=== PATIENT | female | born 1965 | race Caucasian/White ===

== ENCOUNTER 2024-02-25 12:02 | Emergency (ER) | payer OTHER, SELFPAY ==
[2024-02-25 12:04] VITALS: BP 161/79
--- NOTE | 2024-02-25 13:31 | ED.GENMED ---
History of Present Illness
General
Chief Complaint: Ear Problem
Time Seen by Provider: 02/25/24 13:06
Travel History
Have you had any contact with someone who has COVID-19?: No
Do you have any symptoms of coronavirus? Fever > 100 degrees, chills, cough, shortness of breath, sore throat, loss of taste or smell, muscle aches, or headache?: No
History of Present Illness
History of Present Illness:
58-year-old female with history of hypothyroidism presents to the emergency department for evaluation of right ear pain over the past day. Pain is rated as severe, no obvious modifying factors. Denies any trauma to the ear. Denies any associated
viral URI symptoms, fevers, hearing loss, tinnitus, vertigo, chest pain, or shortness of breath. No neck pain or back pain. Denies any vision changes or jaw claudication
Review of Systems
Review of Systems
Allergies reviewed?: Yes
All Other Systems: ROS reviewed and negative except as documented in HPI and ROS
Phy Exam
Physical Exam
Physical Exam:
GEN: Well appearing, NAD, WDWN
HEENT: Oral mucosa moist, no scleral icterus. TMs clear bilaterally with no erythema or bulging, no middle ear effusions. Mild tenderness to the right mastoid area, no palpable adenopathy. No erythema or protrusion of the auricle, no crepitus or
vesicular rashes. Pupils equal round reactive to light bilaterally without photosensitivity
Cardiac: Regular rate and rhythm, no murmurs
Lung: No respiratory distress, no tachypnea
MSK: No gross deformity or injuries
Skin: Good color, no pallor or jaundice, no rashes
Neuro: AO x3, moves all extremities freely
Psych: Calm, cooperative
Course
Orders/Labs/Results
Orders:
Orders
02/25/24 13:30
IV Insert/Care/Rem.- Treatment PRN
Ketorolac [Toradol] 15 mg IV NOW STA
02/25/24 13:54
Complete Blood Count/With Diff Urgent
ESR [Erythrocyte Sed Rate] Urgent
02/25/24 13:55
CRP [C-Reactive Protein] Urgent
Comprehensive Metabolic Panel Urgent
Abnormal Lab Results
02/25/24 02/25/24
13:54 13:55
RBC 3.17 L 10^6/uL
(4.20-5.40)
Hgb 9.6 L g/dL
(12.0-16.0)
Hct 28.6 L %
(37.0-47.0)
Plt Count 449 H 10^3/uL
(130-400)
Absolute Monos (auto) 0.8 H 10^3/uL
(0.1-0.6)
Monocytes % 10.9 H %
(1.7-9.3)
ESR 24 H mm/hour
(0-20)
Sodium 134 L mmol/L
(135-145)
AST 42 H U/L
(14-36)
ALT 45 H U/L
(0-35)
02/25/24 13:54
02/25/24 13:55
Vital Signs
Initial and Last Documented VS:
Initial Vital Signs
Temp Pulse Resp BP Pulse Ox
98.5 F 86 18 161/79 100
02/25/24 12:04 02/25/24 12:04 02/25/24 12:04 02/25/24 12:04 02/25/24 12:04
Last Documented Vital Signs
Temp Pulse Resp BP Pulse Ox
98.5 F 86 18 161/79 100
02/25/24 12:04 02/25/24 12:04 02/25/24 12:04 02/25/24 12:04 02/25/24 12:04
MDM/Problems Addressed
MDM/Problems Addressed:
Unclear etiology. She has no associated acute otitis media or otitis externa. Exam is not convincing for mastoiditis as there is no erythema or protrusion of the auricle. She has no rashes to suggest zoster. Labs are reassuring, negative
inflammatory markers rules out giant cell arteritis. Recommend NSAIDs and ice, primary care follow-up if pain persists, ED return parameters discussed
*Critical Care Note
Total Time (30-74mins, 75-104mins- exclusive of procedures): Not Applicable
ED Attending Note
-
Portions of this chart may have been created with voice recognition software.� Occasional wrong word or��sound alike� substitutions may have occurred due to the inherent limitations of voice recognition software.
Discharge Plan
Departure
Patient Disposition: Home (Routine Discharge)
Date of Disposition: 02/25/24
Time of Disposition: 14:48
Patient with high blood pressure during this ER visit?: No
Discharge Problem:
Ear pain, right
Referrals:
Stephanie Aguirre, DO [Family Provider] -
Activity Restrictions/Additional Instructions:
At this time there is no clear cause of your ear pain
You lab work is reassuring and there is no evidence of inflammatory/vascular condition
Your exam is reassuring against mastoiditis or inner ear infection
You have no rashes to suggest shingles, however if a blistery rash develops, shingles is most likely
Continue with anti inflammatories as we discussed
If you develop a fever, redness/swelling behind the right ear, hearing loss, or severe dizziness, return for re-evaluation
Interventions
Interventions:
*Risk Screen - Suicide Last Done: 02/25/24 12:04
*Neglect/Abuse Screening Last Done: 02/25/24 12:04
*ED COVID-19 Vaccine History Last Done: 02/25/24 12:04
*Nursing Disposition Last Done: 02/25/24 15:06
Discharge Date and Time
Discharge Date/Time: 02/25/24 15:06
Print Language: MARSHALLESE
[2024-02-25] MEDS: TORADOL 15 MG IV (13:50)
[2024-02-25 14:17] LABS: % Basophils 1.6 % (0-2); % Eosinophils 3.6 % (0-6); % Immature Granulocytes 0.3 % (0-0.5); % Monocytes 10.9 % (1.7-9.3); % Neutrophils 49.6 % (42.2-75.2); Absolute Basophils 0.1 10^3/uL (0-0.2); Absolute Eosinophils 0.3 10^3/uL (0-0.7); Absolute Lymphocytes 2.4 10^3/uL (1.2-3.4); Absolute Monocytes 0.8 10^3/uL (0.1-0.6); Absolute Neutrophils 3.5 10^3/uL (1.4-6.5); Hematocrit 28.6 % (37.0-47.0); Hemoglobin 9.6 g/dL (12.0-16.0); Mean Corp Hgb Conc. 33.6 g/dL (33.0-37.0); Mean Corpuscular Hgb 30.3 pg (27.0-31.0); Mean Corpuscular Volume 90.2 fL (81.0-99.0); Mean Platelet Volume 9.7 fL (7.4-10.4); Nucleated Red Blood Cells % 0 %; Platelet Count 449 10^3/uL (130-400); Red Blood Cell Count 3.17 10^6/uL (4.20-5.40); Red Cell Dist. Width 13.1 % (11.5-14.5)
[2024-02-25 14:35] LABS: ALT (SGPT) 45 U/L (0-35); AST (SGOT) 42 U/L (14-36); Albumin 4.4 g/dl (3.5-5.0); Alkaline Phosphatase 52 U/L (38-126); Blood Urea Nitrogen 12 mg/dl (7-17); Calcium 9.9 mg/dl (8.4-10.2); Carbon Dioxide 22 mmol/L (22-30); Chloride 106 mmol/L (98-107); Glucose 95 mg/dl (70-99); Sodium 134 mmol/L (135-145); Total Bilirubin 0.3 mg/dl (0.2-1.3); Total Protein 6.7 g/dl (6.3-8.2); eGFR > 60.00
[2024-02-25 14:39] LABS: C-Reactive Protein < 5.00 mg/L (0.0-10.00)
[2024-02-25 14:44] LABS: Erythrocyte Sed Rate 24 mm/hour (0-20)
== END 2024-02-25 15:06 | disposition home or self-care (01) ==
LOC: EMR 12:02
PROVIDERS: Physician Assistant; EMERGENCY PHYSICIAN Student in an Organized Health Care Education/Training Program; FAMILY PHYSICIAN Family Medicine
DX: H92.01 Otalgia, right ear (principal); E03.9 Hypothyroidism, unspecified
CPT/HCPCS: 99284; 96374; 80053; 85025; 85652; 86140

== ENCOUNTER → 2024-06-25 12:06 | Outpatient (REF) | payer SELFPAY | LOC: HWRAD 12:06 | PROVIDERS: ATTENDING PHYSICIAN Nurse Practitioner | DX: R05.1 Acute cough (principal); R19.7 Diarrhea, unspecified; R09.89 Other specified symptoms and signs involving the circulatory and respiratory systems; R20.9 Unspecified disturbances of skin sensation | CPT/HCPCS: 71046 ==

== ENCOUNTER 2024-06-28 12:58 | Emergency (ER) | payer SELFPAY ==
[2024-06-28 12:59] VITALS: BP 177/100
[2024-06-28 13:13] LABS: % Basophils 1.1 % (0-2); % Eosinophils 1.1 % (0-6); % Immature Granulocytes 0.2 % (0-0.5); % Lymphocytes 25.2 % (20.5-51.1); % Monocytes 8.5 % (1.7-9.3); % Neutrophils 63.9 % (42.2-75.2); Absolute Basophils 0.1 10^3/uL (0-0.2); Absolute Eosinophils 0.1 10^3/uL (0-0.7); Absolute Lymphocytes 1.4 10^3/uL (1.2-3.4); Absolute Monocytes 0.5 10^3/uL (0.1-0.6); Absolute Neutrophils 3.5 10^3/uL (1.4-6.5); Hematocrit 33.3 % (37.0-47.0); Mean Corpuscular Hgb 27.4 pg (27.0-31.0); Mean Platelet Volume 9.4 fL (7.4-10.4); Nucleated Red Blood Cells % 0 %; Platelet Count 422 10^3/uL (130-400); Red Blood Cell Count 4.01 10^6/uL (4.20-5.40); Red Cell Dist. Width 17.5 % (11.5-14.5); White Blood Cell Count 5.4 10^3/uL (4.8-10.8)
[2024-06-28 13:27] LABS: ALT (SGPT) 51 U/L (0-35); AST (SGOT) 103 U/L (14-36); Albumin 4.7 g/dl (3.5-5.0); Alkaline Phosphatase 59 U/L (38-126); Blood Urea Nitrogen 4 mg/dl (7-17); Calcium 10.3 mg/dl (8.4-10.2); Carbon Dioxide 17 mmol/L (22-30); Chloride 101 mmol/L (98-107); Glucose 78 mg/dl (70-99); Potassium 4.3 mmol/L (3.5-5.1); Sodium 132 mmol/L (135-145); Total Protein 6.9 g/dl (6.3-8.2); eGFR > 60.00
[2024-06-28 14:06] VITALS: BP 158/92
--- NOTE | 2024-06-28 15:29 | ED.GENMED ---
History of Present Illness
<Renuka Alexandre PA-C - Last Filed: 06/29/24 00:04>
General
Chief Complaint: Abdominal Symptoms
Source: patient
Exam Limitations: none
Time Seen by Provider: 06/28/24 15:03
Nursing documentation reviewed up to this point in time: agreed with
History of Present Illness
History of Present Illness:
Patient is a 59-year-old female with history hypothyroid presenting to the emergency department from primary care office for evaluation of ongoing diarrhea for the past 7 days. Patient states that first episode of diarrhea occurred last Friday and
has been persistent since. Patient reports about 10 episodes of diarrhea per day. No blood in her stool, dark stool, or melena. Patient also endorses some mild pain in her left lower abdomen. No nausea or vomiting. She does report a fever of
100.1 a few days ago at home. Patient denies any urinary symptoms, chest pain, shortness of breath. Patient has been following the brat diet without any improvement.
Patient denies any recent antibiotic use or hospitalizations. Patient denies any recent travel. No recent seafood, [employer] party food. No known sick contacts.
Patient was seen by her primary care doctor today who was very concerned given she has lost 10 pounds. She referred her to the emergency department for thorough evaluation.
Past History
<Renuka Alexandre PA-C - Last Filed: 06/29/24 00:04>
Past History
ED Past Medical History: Hypothyroidism
ED Past Surgical History:
Patient has exhibited threatening behavior?: No
Social History
Tobacco: Non-smoker
Alcohol: Occasional
Living: alone
Review of Systems
<Renuka Alexandre PA-C - Last Filed: 06/29/24 00:04>
Review of Systems
Allergies reviewed?: Yes
All Other Systems: ROS reviewed and negative except as documented in HPI and ROS
Phy Exam
<Renuka Alexandre PA-C - Last Filed: 06/29/24 00:04>
Physical Exam
Physical Exam:
Vitals: Hypertensive, otherwise vital signs stable. Afebrile
General: Patient is well appearing, no acute distress
Skin: Warm and dry, no rashes or lesions
Head: Normocephalic, atraumatic
Eyes: Sclera nonicteric. EOMs intact. No nystagmus.
Throat: Dry mucous membranes. Protecting airway
Neck: Normal ROM, no cervical spine tenderness, no meningismus
Cardiac: Regular rate and rhythm, no murmurs.
Pulm: Normal respiratory effort, no wheezes, rales, rhonchi heard on exam.
Abdomen: Abdomen soft. Mild tenderness in left lower quadrant without any rebound tenderness or guarding. No CVA tenderness
Extremities: No evidence of cyanosis or edema
Neuro: AAOx3. CN II-XII intact. No focal neurologic deficits.
Psychiatric: Normal affect.
Course
<Renuka Alexandre PA-C - Last Filed: 06/29/24 00:04>
Orders/Labs/Results
Orders:
Orders
06/28/24 13:05
Complete Blood Count/With Diff Urgent
Comprehensive Metabolic Panel Urgent
Free T4 Urgent
Lipase Urgent
TSH Reflex To Free T4 Urgent
Comment: ADDON
06/28/24 15:20
Add On- LAB Urgent
Tests Added?: TSH w/ reflex to T4
Electrocardiogram (*1) Urgent
Reason for Study: Fatigue / Weakness
EKG- Treatment ONCE
0.9% Sodium Chloride 1000 ml [Nss] 1,000 ml IV BOLUS
06/28/24 15:23
CT Abd/Pel (IV only)-DH only Urgent
Comment:
Reason For Exam: Diarrhea, weight loss, LLQ pain
06/28/24 15:43
Urinalysis Reflex To Culture Urgent
Date Specimen was Collected: 06/28/24
Time Specimen was Collected: 15:33
06/28/24 16:10
0.9% Sodium Chloride 1000 ml [Nss] 2,000 ml IV BOLUS
Abnormal Lab Results
06/28/24 06/28/24
13:05 15:43
RBC 4.01 L 10^6/uL
(4.20-5.40)
Hgb 11.0 L g/dL
(12.0-16.0)
Hct 33.3 L %
(37.0-47.0)
RDW 17.5 H %
(11.5-14.5)
Plt Count 422 H 10^3/uL
(130-400)
Sodium 132 L mmol/L
(135-145)
Carbon Dioxide 17 L mmol/L
(22-30)
BUN 4 L mg/dl
(7-17)
Calcium 10.3 H mg/dl
(8.4-10.2)
AST 103 H U/L
(14-36)
ALT 51 H U/L
(0-35)
TSH (Reflex) < 0.02 L uIU/ml
(0.47-4.68)
Urine Ketones 2+ A
(Negative)
06/28/24 13:05
06/28/24 13:05
Vital Signs
Initial and Last Documented VS:
Initial Vital Signs
Temp Pulse Resp BP Pulse Ox
98.2 F 110 16 177/100 97
06/28/24 12:59 06/28/24 12:59 06/28/24 12:59 06/28/24 12:59 06/28/24 12:59
Last Documented Vital Signs
Temp Pulse Resp BP Pulse Ox
98.2 F 78 16 155/78 99
06/28/24 12:59 06/28/24 17:52 06/28/24 17:52 06/28/24 17:52 06/28/24 17:52
<Nish Lauren, DO - Last Filed: 06/28/24 17:52>
Orders/Labs/Results
Orders:
Orders
06/28/24 13:05
Complete Blood Count/With Diff Urgent
Comprehensive Metabolic Panel Urgent
Free T4 Urgent
Lipase Urgent
TSH Reflex To Free T4 Urgent
Comment: ADDON
06/28/24 15:20
Add On- LAB Urgent
Tests Added?: TSH w/ reflex to T4
Electrocardiogram (*1) Urgent
Reason for Study: Fatigue / Weakness
EKG- Treatment ONCE
0.9% Sodium Chloride 1000 ml [Nss] 1,000 ml IV BOLUS
06/28/24 15:23
CT Abd/Pel (IV only)-DH only Urgent
Comment:
Reason For Exam: Diarrhea, weight loss, LLQ pain
06/28/24 15:43
Urinalysis Reflex To Culture Urgent
Date Specimen was Collected: 06/28/24
Time Specimen was Collected: 15:33
06/28/24 16:10
0.9% Sodium Chloride 1000 ml [Nss] 2,000 ml IV BOLUS
Abnormal Lab Results
06/28/24 06/28/24
13:05 15:43
RBC 4.01 L 10^6/uL
(4.20-5.40)
Hgb 11.0 L g/dL
(12.0-16.0)
Hct 33.3 L %
(37.0-47.0)
RDW 17.5 H %
(11.5-14.5)
Plt Count 422 H 10^3/uL
(130-400)
Sodium 132 L mmol/L
(135-145)
Carbon Dioxide 17 L mmol/L
(22-30)
BUN 4 L mg/dl
(7-17)
Calcium 10.3 H mg/dl
(8.4-10.2)
AST 103 H U/L
(14-36)
ALT 51 H U/L
(0-35)
TSH (Reflex) < 0.02 L uIU/ml
(0.47-4.68)
Urine Ketones 2+ A
(Negative)
06/28/24 13:05
06/28/24 13:05
Vital Signs
Initial and Last Documented VS:
Initial Vital Signs
Temp Pulse Resp BP Pulse Ox
98.2 F 110 16 177/100 97
06/28/24 12:59 06/28/24 12:59 06/28/24 12:59 06/28/24 12:59 06/28/24 12:59
Last Documented Vital Signs
Temp Pulse Resp BP Pulse Ox
98.2 F 78 16 155/78 99
06/28/24 12:59 06/28/24 17:52 06/28/24 17:52 06/28/24 17:52 06/28/24 17:52
<Renuka Alexandre PA-C - Last Filed: 06/29/24 00:04>
MDM/Problems Addressed
Differential Diagnosis Includes:
Not limited to: Colitis, enteritis, diverticulitis, dehydration, IBS, IBD
MDM/Problems Addressed:
59-year-old female presenting with 1 week of persistent diarrhea. No associated fever, chills, abdominal pain, nausea, or vomiting. No diarrhea risk factors. Sent to emergency department by PCP for further eval. patient hypertensive on arrival
although otherwise vital signs stable. She is afebrile. Physical exam as above. Patient is well-appearing, in no apparent distress. Abdomen is soft and nontender throughout. Heart regular rate and rhythm. Lungs clear bilaterally. Patient is
perfusing well. Labs were Initiated in triage which show a mild anemia with a hemoglobin of 11 which appears stable and chronic. Patient does appear mildly dehydrated on labs. Some elevation in both AST and ALT were noted�seems chronic. Patient
was given a liter of IV fluids. Will also check CT abdomen/pelvis. Will check urinalysis, as well.
CT abdomen/pelvis without any acute abnormalities. Urine does not show any signs of infection. Patient has been unable to provide a stool sample in the emergency department to collect for culture.
Workup here essentially negative. Patient diarrhea of unknown etiology. White count is normal and patient is afebrile. She was repleted with a liter of IV fluids. Suspect likely viral etiology. Patient otherwise well-appearing. No indication
for admission at this time. Return precautions discussed at length. Advised to follow-up with PCP for possible stool culture if symptoms persist. Patient seen by attending physician
Chronic conditions affecting care:
N/A
Acute Exacerbation and/or Progression of Chronic Illness:
N/A
<Renuka Alexandre PA-C - Last Filed: 06/29/24 00:04>
*Radiology
Radiology exam reviewed: preliminary read by ED provider and radiology read reviewed
*Pulse Oximetry
Patient hypoxic: no
*EKG
Interpreted by ED Provider?: Yes
EKG Intrepretation Date: 06/28/24
Interpretation: normal
Comparison EKG: no comparison EKG present
Heart Rate: 84
Rate: normal
Rhythm: sinus
Interval: normal interval
QRS Pattern: normal QRS
Ischemia: non-specific ST changes
*Submarine Operator Interpretation
Rate: Submarine Operator- N/A
*Critical Care Note
Total Time (30-74mins, 75-104mins- exclusive of procedures): Not Applicable
ED Attending Note
<Renuka Alexandre PA-C - Last Filed: 06/29/24 00:04>
-
Portions of this chart may have been created with voice recognition software.� Occasional wrong word or��sound alike� substitutions may have occurred due to the inherent limitations of voice recognition software.
<Nish Lauren DO - Last Filed: 06/28/24 17:52>
ED Attending Note
Patient seen and examined by attending physician: Yes
I performed a history and physical exam of patient and discussed management with resident, I reviewed resident's note and agree with documented findings and plan of care.: Yes
ED Attending Note:
I reviewed agree with history and treatment plan by Renuka Crenshaw. My exam revealed
Physical Exam
General: no apparent distress, not acutely ill
Neck: supple. no meningeal signs. normal posterior pharynx
Heart: s1/s2 regular rate and rhythm, no murmur. equal radial
pulses.
HEENT: Pupils equal round reactive to light, EOMI
Lungs: no acute respiratory distress. clear bilaterally
Abdomen: normal bowel sounds. not tender. no CVAT
Neuro: alert and oriented. no focal neurological deficits cranial nerves II through XII intact
Skin: no rash
Psychiatric: well kept. interactive and cooperative
Extremities: no edema. no calf tenderness. negative homans. good distal pulses
Patient with diarrhea of unclear etiology. No bowel movements in the ED. Stable for discharge and follow-up with primary care.
Discharge Plan
Departure
Patient Disposition: Home (Routine Discharge)
Date of Disposition: 06/28/24
Time of Disposition: 17:38
Patient with high blood pressure during this ER visit?: Yes
Condition: Good
Covid-19: Not Applicable
Discharge Problem:
Acute diarrhea
Instructions: Acute Diarrhea, BLOOD PRESSURE
Referrals:
Stephanie Aguirre DO [Family Provider] - Follow up in 5-7 days
Activity Restrictions/Additional Instructions:
RETURN TO THE EMERGENCY DEPARTMENT WITH ANY FEVERS, CHILLS, SEVERE ABDOMINAL PAIN, BLOOD IN STOOL, SIGNS OF SEVERE DEHYDRATION, WORSENING IN CURRENT SYMPTOMS, OR ANY OTHER CONCERNS
-As discussed�it is very important you stay well-hydrated. I recommend a bland diet and advance as tolerated.
-If diarrhea persists�you should follow-up with your primary care provider for further evaluation/management. They may want to collect a stool sample.
Monitor your symptoms closely return to the emergency department with any acute worsening/new symptoms.
Interventions
Interventions:
*Risk Screen - Suicide Last Done: 06/28/24 14:07
*General Assessment Last Done: 06/28/24 14:07
*Neglect/Abuse Screening Last Done: 06/28/24 14:07
ED- Fall Risk Assessment Last Done: 06/28/24 13:17
*ED COVID-19 Vaccine History Last Done: 06/28/24 13:17
*Nursing Disposition Last Done: 06/28/24 17:52
QZ-Ehfhxa-Oqidlwggip Assessment Last Done: 06/28/24 13:18
Discharge Date and Time
Discharge Date/Time: 06/28/24 17:52
Print Language: BARBADIAN
[2024-06-28] MEDS: NSS 1000 IV (15:44)
[2024-06-28 16:00] VITALS: BP 156/86
[2024-06-28 16:14] LABS: Lipase 232 U/L (23-300)
[2024-06-28 16:31] LABS: TSH Reflex To Free T4 < 0.02 uIU/ml (0.47-4.68)
[2024-06-28 16:33] LABS: Urine Albumin Negative (Neg - Trace); Urine Bilirubin Negative (Negative); Urine Character Clear (Clear); Urine Color Yellow; Urine Glucose Negative (Negative); Urine Ketone 2+ (Negative); Urine Leukocyte Negative (Negative); Urine Nitrite Negative (Negative); Urine Occult Blood Negative (Negative); Urine Urobilinogen Negative (Neg - 1+)
[2024-06-28 17:23] LABS: Free T4 2.05 ng/dl (0.78-2.19)
[2024-06-28 17:52] VITALS: BP 155/78
== END 2024-06-28 17:52 | disposition home or self-care (01) ==
LOC: EMR 12:58
PROVIDERS: Emergency Medicine; Physician Assistant; EMERGENCY PHYSICIAN Emergency Medicine; FAMILY PHYSICIAN Family Medicine
DX: R19.7 Diarrhea, unspecified (principal); R10.32 Left lower quadrant pain; R63.4 Abnormal weight loss; D64.9 Anemia, unspecified; E03.9 Hypothyroidism, unspecified; E86.0 Dehydration
CPT/HCPCS: 99284; 96360; 74177; 80053; 81003; 83690; 84439; 84443; 85025; 93005; Q9967

== ENCOUNTER → 2024-08-10 09:46 | Outpatient (REF) | payer SELFPAY | LOC: HWRAD 09:46 | PROVIDERS: ATTENDING PHYSICIAN Physician Assistant Medical | DX: R53.83 Other fatigue (principal); R50.9 Fever, unspecified; R05.9 Cough, unspecified | CPT/HCPCS: 71046 ==

== ENCOUNTER → 2025-07-15 06:33 | Outpatient (REF) | payer OTHER, SELFPAY | LOC: HWRAD 06:33 | PROVIDERS: ATTENDING PHYSICIAN Family Medicine | DX: R06.2 Wheezing (principal) | CPT/HCPCS: 71046 ==

== ENCOUNTER 2025-11-20 17:39 | Emergency (ER) | payer SELFPAY ==
[2025-11-20 17:42] VITALS: BP 163/97
--- NOTE | 2025-11-20 18:52 | ED.MUSCINJ ---
HPI-Injury
General
Chief Complaint: Musculo-Skeletal Complaint
Source: patient
Exam Limitations: none
Time Seen by Provider: 11/20/25 18:37
Nursing documentation reviewed up to this point in time: agreed with
History of Present Illness-Injury
Is this injury a work related problem?: No
Is pt an associate of [facility]?: No
Initial Injury comments:
Patient to emergency department for evaluation of left shoulder pain. Patient states she slipped on ice and fell with her arm extended. She complains of pain to the left shoulder. Incident occurred just prior to arrival.
Past History
Past History
ED Past Medical History: Hypothyroidism
ED Past Surgical History:
Patient has exhibited threatening behavior?: No
Social History
Tobacco: Non-smoker
Alcohol: Occasional
Living: alone
Review of Systems
Review of Systems
Allergies reviewed?: Yes
All Other Systems: ROS reviewed and negative except as documented in HPI and ROS
Constitutional: Reports no symptoms
EENT: Reports no symptoms
Respiratory: Reports no symptoms
Cardiac: Reports no symptoms
ABD/GI: Reports no symptoms
: Reports no symptoms
Musculoskeletal: Reports joint pain (Pain to left shoulder)
Skin: Reports no symptoms
Neurological: Reports no symptoms
Psychiatric: Reports no symptoms
Musculoskeletal Injury Exam
Musculoskeletal Injury Exam
Left Shoulder:
Pain with Movement?: Moderate
Tender to palpation?: Moderate
Soft tissue swelling?: Mild
External deformity and angulation?: None
Joint effusion?: None
Contusion?: Moderate
Strain- Sprain- Tear (Connective tissue injury)?: Moderate
Crepitus with movement?: No
Joint instability?: No
Malalignment/deformity?: No
Range of motion: Limited
Distal skin color and temperature: normal-warm & good color
Capillary Refill: normal
Normal distal neurovascular exam?: Yes
Peripheral Pulses: radial (left): 3+
Phy Exam
General Physical Exam
General Presentation: well appearing and mild distress
General age: appears stated age
General Skin: warm
General Habitus: normal
Musculoskeletal Exam
Musculoskeletal Exam: neuro vasc intact
Skin Exam
Skin Exam: normal color, warm/dry and no rash
Psychiatric Exam
Psychiatric Exam: normal mood/affect
Injury Course
Orders/Labs/Results
Orders:
Orders
11/20/25 17:40
Humerus, Left 2 Views [CR Humerus - Left Min 2 Views*] Urgent
Comment:
Reason For Exam: fall
11/20/25 17:46
Shoulder, Left, Trauma CR [CR Shoulder, Trauma - Left] Urgent
Comment:
Reason For Exam: left shoulder/upper arm injury
11/20/25 18:47
Shoulder Immobilizer Left- Tx ONCE
Oxycodone [Roxicodone] 5 mg PO NOW STA
*Radiology
Radiology exam reviewed: radiology read reviewed
*Pulse Oximetry
SaO2: 99
Oxygen Mode of Delivery: Room air
Patient hypoxic: no
*Critical Care Note
Total Time (30-74mins, 75-104mins- exclusive of procedures): Not Applicable
Update Note
Update Note:
Patient to the emergency department after slip and fall on ice earlier today. She reports injuring her left shoulder. X-ray reviewed. Confirms a fracture to the left humeral head. There is no dislocation. She was placed in a shoulder
immobilizer sling. She will continue ice and ibuprofen at home. She was given a prescription for oxycodone for pain not controlled with ibuprofen. She was given the number for orthopedics and will call in a.m. to schedule an appointment for this
week for follow-up.
ED Attending Note
-
Portions of this chart may have been created with voice recognition software.� Occasional wrong word or��sound alike� substitutions may have occurred due to the inherent limitations of voice recognition software.
Discharge Plan
Departure
Patient Disposition: Home (Routine Discharge)
Date of Disposition: 11/20/25
Time of Disposition: 18:48
Patient with high blood pressure during this ER visit?: No
Condition: Good
Covid-19: Not Applicable
Discharge Problem:
Fracture of proximal end of left humerus
Instructions: Ibuprofen, How to Use a Shoulder Sling, Using Cold for Pain, Shoulder or upper arm fracture
Prescriptions:
New
oxycodone 5 mg capsule
5 mg PO Q4H PRN (Reason: Pain) Qty: 14 0RF
Referrals:
Angus Diaz MD [Active, Orthopedics] - Call in 1-3 days for appt
Discharge Date and Time
Print Language: MOLDOVAN
[2025-11-20] MEDS: ROXICODONE 5 MG PO (19:08)
== END 2025-11-20 19:22 | disposition home or self-care (01) ==
LOC: EMR 17:39
PROVIDERS: EMERGENCY PHYSICIAN Emergency Medicine; FAMILY PHYSICIAN Nurse Practitioner Pediatrics
DX: S42.202A Unspecified fracture of upper end of left humerus, initial encounter for closed fracture (principal); W01.0XXA Fall on same level from slipping, tripping and stumbling without subsequent striking against object, initial encounter; E03.9 Hypothyroidism, unspecified
CPT/HCPCS: 99283; 73030; 73060